=== PATIENT | male | born 1975 | race Caucasian/White ===

== ENCOUNTER 2020-04-21 17:54 | Emergency (ER) | payer BC, OTHER ==
[~2020-04-21] VITALS: Ht 167 cm; Wt 103.4 kg
[2020-04-21] MEDS ORDERED: LIDOCAINE PF 2% 5 ML (XYLOCAINE) VIAL INH ONE (18:30)
--- NOTE | 2020-04-21 18:36 | ED Upper Extremity ---
General Chief Complaint: Laceration Stated Complaint: RT PINKY LAC Nursing Triage Note: Has laceration to R 5th finger from a chainsaw. Nursing Sepsis Screen: No Definite Risk Source: patient History of Present Illness Date Seen by Provider: Apr 21, 2020 Time Seen by Provider: 18:31 Initial Comments 44-year-old male presents with injury to his right hand little finger involving a chainsaw. States the blade was slowing down when he accidentally grazed his hand across it. Mostly small lacerations, only of the right hand fourth and fifth digits. Denies any other injury. Tetanus is not up-to-date greater than 5 years. Onset: just prior to arrival Allergies and Home Medications Allergies Coded Allergies: No Known Drug Allergies (Unverified , 04/21/20) Patient Home Medication List Home Medication List Reviewed: Yes Review of Systems Constitutional: no symptoms reported; No chills, No fever Musculoskeletal: No joint pain, No joint swelling; other (R hand little finger pain/ laceration) Skin: see HPI Psychiatric/Neurological: Denies Numbness, Denies Paresthesia Past Dhfjzob-Bjuxom-Iakmga Hx Past Med/Social Hx: Reviewed Nursing Past Med/Soc Hx Patient Social History Alcohol Use: Denies Use Recreational Drug Use: No Smoking Status: Never a Smoker 2nd Hand Smoke Exposure: No Recent Foreign Travel: No Contact w/Someone Who Travel: No Recent Infectious Disease Expo: No Recent Hopitalizations: No Physical Abuse: No Sexual Abuse: No Mistreated: No Fear: No Seasonal Allergies Seasonal Allergies: No Past Medical History Surgeries: No Respiratory: No Cardiac: No Neurological: No Genitourinary: No Gastrointestinal: No Musculoskeletal: No Endocrine: No HEENT: No Cancer: No Psychosocial: No Integumentary: No Blood Disorders: No Adverse Reaction/Blood Tranf: No Physical Exam Vital Signs Vital Signs - First Documented 04/21/20 18:25 Temp 36.7 Pulse 87 Resp 16 B/P (MAP) 162/104 (123) Pulse Ox 97 Capillary Refill : Less Than 3 Seconds Height, Weight, BMI Height: '" Weight: lbs. oz. kg; 37.00 BMI Method: General Appearance: WD/WN, no apparent distress Hand: normal ROM, Right Skin: other (multiple superficial lac's 5th digit w one larger one of 1cm (to suture). + hemostasis. NVI) Procedures/Interventions Wound Location: Upper Extremities Other Wound Location R hand 5th digit Wound Length (cm): 1 Wound's Depth, Shape: irregular Wound Explored: clean Irrigated w/ Saline (ccs): 20 Betadine Prep?: Yes Anesthesia: 1% Lidocaine Volume Anesthetic (ccs): 2 Suture: Prolene Suture Size: 5-0 Number of Sutures: 2 Sterile Dressing Applied?: Yes Progress/Results/Core Measures Results/Orders My Orders Orders - SANDRA GUSMAN DO Lidocaine 2% Pf 5 Ml (Xylocaine 2% Pf) (04/21/20 18:30) Bacitracin Ointment (Bacitracin Ointment (04/21/20 21:00) Dipht,Pertuss(Acell),Tet Adult (Boostrix (04/21/20 18:45) Medications Given in ED Current Medications Medications Dose Ordered Sig/Rickey Route Start Time Stop Time Status Last Admin Dose Admin Diphtheria/ Tetanus/Acell Pertussis 0.5 ml ONCE ONCE IM 04/21/20 18:45 04/21/20 18:46 DC 04/21/20 19:33 0.5 ML Vital Signs/I&O 04/21/20 04/21/20 18:25 19:39 Temp 36.7 36.7 Pulse 87 87 Resp 16 16 B/P (MAP) 162/104 (123) 162/104 (123) Pulse Ox 97 97 Blood Pressure Mean: 123 Departure Impression Primary Impression: Laceration of finger of right hand Qualified Codes: S61.216A - Laceration without foreign body of right little finger without damage to nail, initial encounter Disposition: HOME, SELF-CARE Condition: Improved Departure-Patient Inst. Decision time for Depature: 19:37 Referrals: SVETLANA CROW DO (PCP/Family) Primary Care Physician Patient Instructions: Tetanus Toxoid (Adsorbed), Laceration Repair With Stitches (DC) Add. Discharge Instructions: Follow up in 10 days for suture removal All discharge instructions reviewed with patient and/or family. Voiced understanding. SANDRA GUSMAN DO Apr 21, 2020 18:36
[2020-04-21] MEDS ORDERED: TETANUS,DIPTH,PERTUSS P/F (BOOSTRIX) 0.5 ML VIAL IM ONE (18:45)
[2020-04-21 19:39] VITALS: BP 162/104
[2020-04-21] MEDS ORDERED: BACITRACIN OINTMENT 28 GM TUBE TOP SCH (21:00)
== END 2020-04-21 19:39 | disposition home or self-care (01) ==
LOC: ER FS 17:55
DX: S61.216A Laceration without foreign body of right little finger without damage to nail, initial encounter (principal); Z23 Encounter for immunization; W29.3XXA Contact with powered garden and outdoor hand tools and machinery, initial encounter
CPT/HCPCS: 90715

== ENCOUNTER → 2021-01-21 | Outpatient (CLI) | payer BC ==
--- NOTE | 2021-01-21 09:28 | Diagnostic Imaging Report ---
INDICATION: ABDOMINAL PAIN TECHNIQUE: Multiple real-time brink scale sonographic images of the abdomen. CORRELATION STUDY: None FINDINGS: LIVER: Liver length 17.7 cm. Increased echogenicity suggesting fatty infiltration. No definitive focal lesion. There is normal, hepatopedal direction of flow within the main portal vein. GALLBLADDER: No shadowing gallstones or pericholecystic fluid. COMMON BILE DUCT: Obscured. No overt bile duct dilatation. PANCREAS: Limited in visualization. The visualized portions appearing unremarkable. SPLEEN: Borderline prominent 12 x 5 x 4.6 cm. ABDOMINAL AORTA: Unremarkable. INFERIOR VENA CAVA: Limited in visualization. RIGHT KIDNEY: 11.5 x 5.4 x 5.9 cm. Unremarkable. LEFT KIDNEY: 11.4 x 5.7 x 4.6 cm. Unremarkable. OTHER: No significant ascites. Overall limitations on this study owing to patient's reported body habitus and overlying bowel gas. IMPRESSION: 1. Likely hepatic steatosis. 2. Negative for gallstones. Biliary tree is not visualized but without overt bile duct dilatation. 3. Borderline splenic size. Dictated by: Dictated on workstation # [id number]
== END ==
LOC: RAD 07:00
PROVIDERS: ATTEND Internal Medicine
DX: R10.9 Unspecified abdominal pain (principal)
CPT/HCPCS: 76700